=== PATIENT | female | born 1950 | race Two or more races ===

== ENCOUNTER 2020-05-17 13:24 | Outpatient (CLI) | payer MEDICAID ==
[~2020-05-17 13:24] MED LIST: ATORVASTATIN CA20 MG ORAL; BUSPIRONE HCL5 M1 ORAL; CITALOPRAM HBR10 M1 ORAL; EXEMESTANE25 MG PO; KLONOPIN0.5 MG ORAL; MELATONIN1 M1 SL; METOPROLOL SUCC50 MG ORAL
--- NOTE | 2020-05-23 16:02 | General Progress Note ---
Subjective ROS Limited/Unobtainable: Yes Allergies: Coded Allergies: No Known Allergies (Unverified , 03/30/20) Objective General Appearance: alert EENT: normal ENT inspection Neck: supple Cardiovascular: normal rate Respiratory/Chest: lungs clear Abdomen: normal bowel sounds, non tender, soft Extremities: normal range of motion, non-tender Assessment/Plan Assessment/Plan: abd pain s/p EGd and colonoscopy gastritis hemorrhoids add align plan CT Robles Roque MD May 23, 2020 16:01
== END 2020-05-17 15:24 | disposition home or self-care (01) ==
LOC: PAN 13:24
DX: R10.9 Unspecified abdominal pain (principal); K29.70 Gastritis, unspecified, without bleeding; K64.9 Unspecified hemorrhoids
CPT/HCPCS: 99212